=== PATIENT | female | born 2000 | race Two or more races ===

== ENCOUNTER 2021-01-19 15:06 | Emergency (ER) | payer OTHER ==
[~2021-01-19] VITALS: Ht 162.6 cm; Wt 54.0 kg
[2021-01-19] MEDS ORDERED: CYCL10TA2 PO (16:28)
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
[2021-01-19 16:41] VITALS: BP 100/58
== END 2021-01-19 16:41 | disposition home or self-care (01) ==
LOC: ER 15:06
DX: O26.891 Other specified pregnancy related conditions, first trimester (principal); S16.1XXA Strain of muscle, fascia and tendon at neck level, initial encounter; V98.8XXA Other specified transport accidents, initial encounter; Y93.89 Activity, other specified; Y92.413 State road as the place of occurrence of the external cause; Y99.8 Other external cause status
CPT/HCPCS: 81025; 99283